=== PATIENT | female | born 1960 | race Two or more races ===

== ENCOUNTER 2017-08-27 09:03 | Outpatient (CLI) | payer OTHER | END 2017-08-27 09:21 | disposition home or self-care (01) | LOC: LAB 09:03 | DX: D64.89 Other specified anemias (principal); E11.9 Type 2 diabetes mellitus without complications; E78.2 Mixed hyperlipidemia; E03.8 Other specified hypothyroidism; I10 Essential (primary) hypertension ==

== ENCOUNTER 2018-01-14 08:25 | Outpatient (CLI) | payer OTHER | END 2018-01-14 08:37 | disposition home or self-care (01) | LOC: LAB 08:25 | DX: D64.89 Other specified anemias (principal); E11.9 Type 2 diabetes mellitus without complications; E78.2 Mixed hyperlipidemia; I10 Essential (primary) hypertension; E03.8 Other specified hypothyroidism ==

== ENCOUNTER 2018-05-06 08:45 | Outpatient (CLI) | payer OTHER | END 2018-05-06 08:50 | disposition home or self-care (01) | LOC: LAB 08:45 | DX: C73 Malignant neoplasm of thyroid gland (principal); E89.0 Postprocedural hypothyroidism; D50.8 Other iron deficiency anemias; R25.2 Cramp and spasm ==

== ENCOUNTER 2018-09-01 09:34 | Outpatient (CLI) | payer OTHER | END 2018-09-01 09:55 | disposition home or self-care (01) | LOC: LAB 09:34 | DX: D64.89 Other specified anemias (principal); E11.9 Type 2 diabetes mellitus without complications; E78.2 Mixed hyperlipidemia; I10 Essential (primary) hypertension; E03.8 Other specified hypothyroidism ==

== ENCOUNTER → 2019-03-03 10:24 | Outpatient (CLI) | payer OTHER | END | disposition home or self-care (01) | LOC: LAB 10:24 | DX: D64.89 Other specified anemias (principal); E11.9 Type 2 diabetes mellitus without complications; E78.2 Mixed hyperlipidemia; R78.5 Finding of other psychotropic drug in blood; K76.89 Other specified diseases of liver; E03.8 Other specified hypothyroidism; E56.8 Deficiency of other vitamins; R29.898 Other symptoms and signs involving the musculoskeletal system ==

== ENCOUNTER 2019-07-02 07:49 | Outpatient (CLI) | payer OTHER | END 2019-07-02 07:57 | disposition home or self-care (01) | LOC: LAB 07:49 | DX: C73 Malignant neoplasm of thyroid gland (principal); E89.0 Postprocedural hypothyroidism ==

== ENCOUNTER 2019-07-09 12:54 | Outpatient (CLI) | payer OTHER | END 2019-07-09 15:00 | disposition home or self-care (01) | LOC: LAB 12:54 | DX: Z12.4 Encounter for screening for malignant neoplasm of cervix (principal) ==

== ENCOUNTER 2019-11-29 09:40 | Outpatient (CLI) | payer OTHER | END 2019-11-29 09:50 | disposition home or self-care (01) | LOC: LAB 09:40 | PROVIDERS: ATTEND Internal Medicine Sports Medicine | DX: D64.89 Other specified anemias (principal); E11.9 Type 2 diabetes mellitus without complications; E78.2 Mixed hyperlipidemia; I10 Essential (primary) hypertension; E03.8 Other specified hypothyroidism ==

== ENCOUNTER → 2020-03-01 09:57 | Outpatient (CLI) | payer OTHER | END | disposition home or self-care (01) | LOC: LAB 09:57 | PROVIDERS: ATTEND Obstetrics & Gynecology | DX: T74.11XA Adult physical abuse, confirmed, initial encounter (principal); A56.09 Other chlamydial infection of lower genitourinary tract; R10.2 Pelvic and perineal pain; D64.89 Other specified anemias; E78.2 Mixed hyperlipidemia; D50.8 Other iron deficiency anemias; I10 Essential (primary) hypertension; E11.9 Type 2 diabetes mellitus without complications ==

== ENCOUNTER 2020-06-12 10:09 | Outpatient (CLI) | payer OTHER | END 2020-06-12 10:10 | disposition home or self-care (01) | LOC: LAB 10:09 | PROVIDERS: ATTEND Internal Medicine Sports Medicine | DX: D64.89 Other specified anemias (principal); E11.9 Type 2 diabetes mellitus without complications; E78.2 Mixed hyperlipidemia; I10 Essential (primary) hypertension; E03.8 Other specified hypothyroidism ==

== ENCOUNTER → 2020-12-04 07:54 | Outpatient (CLI) | payer OTHER | END | disposition home or self-care (01) | LOC: LAB 07:54 | PROVIDERS: ATTEND Internal Medicine Sports Medicine | DX: D64.89 Other specified anemias (principal); E11.9 Type 2 diabetes mellitus without complications; E78.2 Mixed hyperlipidemia; E03.8 Other specified hypothyroidism; I10 Essential (primary) hypertension ==

== ENCOUNTER → 2021-03-11 11:07 | Outpatient (CLI) | payer OTHER | END | disposition home or self-care (01) | LOC: LAB 11:07 | PROVIDERS: ATTEND Internal Medicine Sports Medicine | DX: C73 Malignant neoplasm of thyroid gland (principal); E89.0 Postprocedural hypothyroidism; K76.0 Fatty (change of) liver, not elsewhere classified ==

== ENCOUNTER 2021-04-11 09:40 | Outpatient (CLI) | payer OTHER | END 2021-04-11 09:42 | disposition home or self-care (01) | LOC: LAB 09:40 | PROVIDERS: ATTEND Internal Medicine Sports Medicine | DX: D50.8 Other iron deficiency anemias (principal); C73 Malignant neoplasm of thyroid gland; E89.0 Postprocedural hypothyroidism; E55.9 Vitamin D deficiency, unspecified; E78.2 Mixed hyperlipidemia ==

== ENCOUNTER 2021-07-18 09:57 | Outpatient (CLI) | payer OTHER | END 2021-07-18 15:00 | disposition home or self-care (01) | LOC: LAB 09:57 | PROVIDERS: ATTEND Colon & Rectal Surgery | DX: K62.89 Other specified diseases of anus and rectum (principal); C73 Malignant neoplasm of thyroid gland; E89.0 Postprocedural hypothyroidism ==

== ENCOUNTER 2021-11-06 10:35 | Outpatient (CLI) | payer OTHER | END 2021-11-06 10:38 | disposition home or self-care (01) | LOC: LAB 10:35 | PROVIDERS: ATTEND Internal Medicine Sports Medicine | DX: C73 Malignant neoplasm of thyroid gland (principal); E89.0 Postprocedural hypothyroidism; E11.9 Type 2 diabetes mellitus without complications ==

== ENCOUNTER 2021-11-16 11:31 | Outpatient (CLI) | payer OTHER | END 2021-11-16 11:40 | disposition home or self-care (01) | LOC: LAB 11:31 | PROVIDERS: ATTEND Obstetrics & Gynecology | DX: E03.9 Hypothyroidism, unspecified (principal); I10 Essential (primary) hypertension ==

== ENCOUNTER 2021-11-23 08:15 | Inpatient (IN) | payer OTHER ==
[~2021-11-23] VITALS: Ht 167.6 cm; Wt 68.9 kg
[2021-11-23] MEDS ORDERED: SYNTHROID112 MCG PO (09:41)
[2021-11-23] MEDS ORDERED: CLONAZEPAM2 M1 PO (09:42)
[2021-11-23] MEDS ORDERED: AMLODIP PO (09:42)
[2021-11-23] MEDS ORDERED: ZETIA10 MG PO (09:43)
[2021-11-23] MEDS ORDERED: DAFLONEX PO (09:43)
[2021-11-23] MEDS ORDERED: PROTONIX40 M1 PO (09:44)
[2021-11-23] MEDS ORDERED: CRESTOR10 MG PO (09:44)
[2021-11-23] MEDS ORDERED: CLARITIN10 M1 PO (09:44)
[2021-11-23] MEDS ORDERED: TOPROL XL50 M1 PO (09:45)
[2021-11-23] MEDS ORDERED: VENTO IH (09:45)
[2021-11-28] MEDS ORDERED: ACETAMINOPHEN-1 EAC2 PO (08:07)
== END 2021-11-28 12:48 | disposition home or self-care (01) | DRG 743 ==
LOC: SURH 11-26 08:15 → O/R 11-26 08:53 → SURH 11-26 16:45 → OB/GYN 11-26 22:43
PROVIDERS: ADMIT Obstetrics & Gynecology; ATTEND Obstetrics & Gynecology
PROC: 0UT7FZZ Resection of Bilateral Fallopian Tubes, Via Natural or Artificial Opening With Percutaneous Endoscopic Assistance (ICD-10-PCS; 2021-11-26)
PROC: 0UT2FZZ Resection of Bilateral Ovaries, Via Natural or Artificial Opening With Percutaneous Endoscopic Assistance (ICD-10-PCS; 2021-11-26)
PROC: 0UQF4ZZ Repair Cul-de-sac, Percutaneous Endoscopic Approach (ICD-10-PCS; 2021-11-26)
PROC: 0USG4ZZ Reposition Vagina, Percutaneous Endoscopic Approach (ICD-10-PCS; 2021-11-26)
PROC: 0UT9FZZ Resection of Uterus, Via Natural or Artificial Opening With Percutaneous Endoscopic Assistance (ICD-10-PCS; principal; 2021-11-26 16:45)
DX: D25.2 Subserosal leiomyoma of uterus (principal); Z20.822 Contact with and (suspected) exposure to COVID-19

== ENCOUNTER 2022-04-24 08:18 | Outpatient (CLI) | payer OTHER ==
[~2022-04-24 08:18] MED LIST: ACETAMINOPHEN-1 EAC2 PO; AMLODIP PO; CLARITIN10 M1 PO; CLONAZEPAM2 M1 PO; CRESTOR10 MG PO; DAFLONEX PO; PROTONIX40 M1 PO; SYNTHROID112 MCG PO; TOPROL XL50 M1 PO; VENTO IH; ZETIA10 MG PO
== END 2022-04-24 08:21 | disposition home or self-care (01) ==
LOC: LAB 08:18
PROVIDERS: ATTEND Internal Medicine Sports Medicine
DX: E11.9 Type 2 diabetes mellitus without complications (principal); E78.2 Mixed hyperlipidemia; I10 Essential (primary) hypertension; E03.8 Other specified hypothyroidism; D72.819 Decreased white blood cell count, unspecified; Z85.850 Personal history of malignant neoplasm of thyroid; E03.9 Hypothyroidism, unspecified; N18.9 Chronic kidney disease, unspecified

== ENCOUNTER → 2022-08-27 09:54 | Outpatient (CLI) | payer OTHER | END | disposition home or self-care (01) | LOC: LAB 09:54 | PROVIDERS: ATTEND Internal Medicine Sports Medicine | DX: D64.9 Anemia, unspecified (principal); E11.9 Type 2 diabetes mellitus without complications; E78.2 Mixed hyperlipidemia; I10 Essential (primary) hypertension; E03.8 Other specified hypothyroidism; R41.89 Other symptoms and signs involving cognitive functions and awareness; R41.3 Other amnesia; E03.9 Hypothyroidism, unspecified; F03.90 Unspecified dementia, unspecified severity, without behavioral disturbance, psychotic disturbance, mood disturbance, and anxiety; E78.1 Pure hyperglyceridemia; M62.9 Disorder of muscle, unspecified; G62.9 Polyneuropathy, unspecified; R20.2 Paresthesia of skin; E22.1 Hyperprolactinemia ==

== ENCOUNTER 2023-09-12 07:49 | Outpatient (CLI) | payer OTHER ==
[2023-09-12 09:13] LABS: HEMATOCRIT 39.6 % (36.0-45.00); HEMOGLOBIN 13.3 g/dL (12.0-15.00); MEAN CELL VOLUME 84.2 fL (80.00-100.00); MEAN CORPUSCULAR HEMOGLOBIN 28.2 pg (27.00-32.0); MEAN CORPUSCULAR HGB CONC 33.5 g/dl (32.0-36.0); PLATELET COUNT 149 K/uL (150-450); RED CELL DISTRIBUTION WIDTH 13.3 % (11.5-14.5)
[2023-09-12 09:39] LABS: URINE APPEARANCE Clear; URINE BILIRRUBIN Negative (NEGATIVE); URINE BLOOD Negative; URINE COLOR Yellow; URINE GLUCOSE Negative (NEGATIVE); URINE LEUKOCYTE Moderate; URINE NITRATE Negative; URINE PROTEIN Negative (NEGATIVE); URINE UROBILINOGEN 0.2 E.U./dl
[2023-09-12 09:43] LABS: URINE BACTERIA 250.6 uL (0.0-1933); URINE EPITHELIAL CELLS 7.7 uL (0.0-38.8); URINE WBC 7.5 uL (0.0-23.2)
[2023-09-12 09:46] LABS: URINE RBC 1.5 uL (0.0-20.8)
[2023-09-12 10:12] LABS: ALBUMIN 3.8 gm/dL (3.4-5.0); BILIRUBIN TOTAL 0.42 mg/dL (0.3-1.2); CALCIUM 8.7 mg/dL (8.5-10.1); CHOL HDL RATIO 4.3 (0-5.0); CREATININE SERUM 0.74 mg/dL (0.55-1.02); GFR 79.52; GLOBULINA 3.1 G/DL (2.4-3.5); POTASSIUM 4.08 mEq/L (3.5-5.1); T4 FREE 0.83 NG/ML (0.76-1.46); TOTAL PROTEIN 6.9 gm/dL (6.4-8.2)
[2023-09-12 10:14] LABS: TSH 0.258 uIU/mL (0.358-3.74)
== END 2023-09-12 07:52 | disposition home or self-care (01) ==
LOC: LAB 07:49
PROVIDERS: ATTEND Internal Medicine Sports Medicine
DX: D64.9 Anemia, unspecified (principal); E11.9 Type 2 diabetes mellitus without complications; E78.2 Mixed hyperlipidemia; I10 Essential (primary) hypertension; E03.8 Other specified hypothyroidism

== ENCOUNTER 2024-03-31 07:57 | Outpatient (CLI) | payer OTHER ==
[2024-03-31 09:23] LABS: URINE APPEARANCE Clear; URINE BILIRRUBIN Negative (NEGATIVE); URINE BLOOD Negative; URINE COLOR Yellow; URINE GLUCOSE Negative (NEGATIVE); URINE KETONE Negative (NEGATIVE); URINE LEUKOCYTE Trace; URINE NITRATE Negative; URINE PROTEIN Negative (NEGATIVE); URINE UROBILINOGEN 0.2 E.U./dl
[2024-03-31 09:27] LABS: URINE BACTERIA 118.3 uL (0.0-1933); URINE EPITHELIAL CELLS 6.9 uL (0.0-38.8); URINE WBC 17.4 uL (0.0-23.2)
[2024-03-31 09:38] LABS: URINE RBC 1.6 uL (0.0-20.8)
[2024-03-31 09:53] LABS: HEMATOCRIT 36.6 % (36.0-45.00); HEMOGLOBIN 12.3 g/dL (12.0-15.00); MEAN CORPUSCULAR HEMOGLOBIN 27.9 pg (27.00-32.0); MEAN CORPUSCULAR HGB CONC 33.6 g/dl (32.0-36.0); PLATELET COUNT 165 K/uL (150-450); RED BLOOD COUNT 4.41 M/uL (4.00-6.00); RED CELL DISTRIBUTION WIDTH 13.9 % (11.5-14.5)
[2024-03-31 10:49] LABS: ALBUMIN 3.8 gm/dL (3.4-5.0); BILIRUBIN TOTAL 0.45 mg/dL (0.3-1.2); CALCIUM 8.5 mg/dL (8.5-10.1); CHOL HDL RATIO 5.2 (0-5.0); CREATININE SERUM 0.72 mg/dL (0.55-1.02); GFR 82.08; POTASSIUM 4.42 mEq/L (3.5-5.1); TOTAL PROTEIN 6.8 gm/dL (6.4-8.2); TSH 0.594 uIU/mL (0.358-3.74)
== END 2024-03-31 23:00 | disposition home or self-care (01) ==
LOC: LAB 07:57
PROVIDERS: ATTEND Internal Medicine Sports Medicine
DX: D64.9 Anemia, unspecified (principal); E11.9 Type 2 diabetes mellitus without complications; E78.2 Mixed hyperlipidemia; I10 Essential (primary) hypertension; E03.8 Other specified hypothyroidism

== ENCOUNTER → 2024-11-08 08:59 | Outpatient (CLI) | payer OTHER ==
[2024-11-08 09:43] LABS: BASO % 0.6 % (0.1-1.2); EOS # 0.17 (0.04-0.54); EOS % 3.3 % (0.7-7.0); HEMOGLOBIN 12.6 g/dL (11.2-15.7); LYMPH # 1.35 (1.18-3.74); LYMPH % 26.6 % (19.3-53.1); MEAN CORPUSCULAR HEMOGLOBIN 27.5 pg (25.6-32.2); MONO # 0.48 (0.24-0.82); MONO % 9.4 % (4.7-12.5); NEUT # 3.04 (1.56-6.13); NEUT % 59.9 % (34.0-71.1); PLATELET COUNT 199 K/uL (163-369); RED BLOOD COUNT 4.58 M/uL (3.93-5.22); RED CELL DISTRIBUTION WIDTH 12.5 % (11.6-14.4)
[2024-11-08 09:47] LABS: PH,URINE 5.5 (5.0-8.0); URINE APPEARANCE Clear; URINE BILIRRUBIN Negative (NEGATIVE); URINE BLOOD Negative; URINE COLOR Yellow; URINE GLUCOSE Negative (NEGATIVE); URINE KETONE Negative (NEGATIVE); URINE LEUKOCYTE Trace; URINE NITRATE Negative; URINE PROTEIN Negative (NEGATIVE); URINE UROBILINOGEN 0.2 E.U./dl
[2024-11-08 09:51] LABS: URINE BACTERIA 68.5 uL (0.0-1933); URINE RBC 10.7 uL (0.0-20.8); URINE WBC 52.8 uL (0.0-23.2)
[2024-11-08 09:52] LABS: URINE CAST 0.14 uL (0.0-1.40)
[2024-11-08 10:29] LABS: ALBUMIN 3.7 gm/dL (3.4-5.0); BILIRUBIN TOTAL 0.32 mg/dL (0.3-1.2); CALCIUM 8.9 mg/dL (8.5-10.1); CHOL HDL RATIO 3.9 (0-5.0); CREATININE SERUM 0.76 mg/dL (0.55-1.02); GFR 76.86; GLOBULINA 3.1 G/DL (2.4-3.5); POTASSIUM 4.15 mEq/L (3.5-5.1); T4 FREE 0.96 NG/ML (0.76-1.46); TOTAL PROTEIN 6.8 gm/dL (6.4-8.2); TSH 0.467 uIU/mL (0.358-3.74)
[2024-11-08 12:39] LABS: VITAMIN D3 25 HYDROXY 62.82 ng/ml (30-120)
== END | disposition home or self-care (01) ==
LOC: LAB 08:59
PROVIDERS: ATTEND Internal Medicine Sports Medicine
DX: D64.9 Anemia, unspecified (principal); E11.9 Type 2 diabetes mellitus without complications; E78.2 Mixed hyperlipidemia; I10 Essential (primary) hypertension; E03.8 Other specified hypothyroidism; Z13.1 Encounter for screening for diabetes mellitus; Z12.11 Encounter for screening for malignant neoplasm of colon; D50.8 Other iron deficiency anemias; E03.9 Hypothyroidism, unspecified; E55.9 Vitamin D deficiency, unspecified; N39.0 Urinary tract infection, site not specified

== ENCOUNTER 2025-04-24 11:43 | Outpatient (CLI) | payer OTHER ==
[2025-04-24 14:06] LABS: T4 FREE 1.28 NG/ML (0.76-1.46)
[2025-04-24 14:11] LABS: TSH 0.295 uIU/mL (0.358-3.74)
== END 2025-04-24 12:03 | disposition home or self-care (01) ==
LOC: LAB 11:43
PROVIDERS: ATTEND Internal Medicine Sports Medicine
DX: C73 Malignant neoplasm of thyroid gland (principal); E89.0 Postprocedural hypothyroidism